=== PATIENT | female | born 1985 | race Caucasian/White ===

== ENCOUNTER 2023-11-02 19:12 | Emergency (ER) | payer MEDICAID ==
[~2023-11-02] VITALS: Ht 165.1 cm; Wt 85.6 kg
[2023-11-02 19:33] VITALS: BP 138/88; PULSE 97; RESP 18; TEMP 97.6; O2SAT 98
== END 2023-11-02 20:35 | disposition home or self-care (01) ==
LOC: ER 19:13
DX: S76.811A Strain of other specified muscles, fascia and tendons at thigh level, right thigh, initial encounter (principal); Z91.040 Latex allergy status; Z91.013 Allergy to seafood; W01.0XXA Fall on same level from slipping, tripping and stumbling without subsequent striking against object, initial encounter; Y93.89 Activity, other specified; Y92.89 Other specified places as the place of occurrence of the external cause; Y99.8 Other external cause status
CPT/HCPCS: 73552; 99283; A6449